=== PATIENT | male | born 1955 | race Caucasian/White ===

== ENCOUNTER 2023-09-16 14:56 | Emergency (ER) | payer BC ==
[2023-09-16] MEDS: Sodium Chloride 0.9% 10 ML Syringe FLUSH PRN (16:19)
[2023-09-16] MEDS: Sodium Chloride 0.9% 1,000 ML IV SCH (16:20)
[2023-09-16 16:23] LABS: BASOPHILS PERCENT AUTO 0.4 % (0.0-1.0); EOSINOPHILS ABSOLUTE AUTO 0.1 K/mm3 (0.0-0.4); EOSINOPHILS PERCENT AUTO 2.8 % (0.0-6.0); HEMOGLOBIN 13.6 gm/dl (14.0-18.0); IMMATURE GRAN ABSOLUTE AUTO 0.01 K/mm3 (0.00-0.05); IMMATURE GRAN PERCENT AUTO 0.2 % (0.0-0.4); LYMPHOCYTES ABSOLUTE AUTO 1.4 K/mm3 (1.0-4.8); LYMPHOCYTES PERCENT AUTO 29.5 % (24.0-44.0); MEAN CORPUSCULAR HEMOGLOBIN 28.3 pg (28.0-32.0); MEAN CORPUSCULAR HGB CONC 32.4 g/dl (32.0-36.0); MEAN CORPUSCULAR VOLUME 87.5 fl (83.0-99.0); MEAN PLATELET VOLUME 9.2 fl (9.4-12.4); MONOCYTES ABSOLUTE AUTO 0.5 K/mm3 (0.0-0.8); NEUTROPHILS ABSOLUTE AUTO 2.7 K/mm3 (1.8-7.7); NEUTROPHILS PERCENT AUTO 57.1 % (41.0-71.0); PLATELET COUNT,PLT 245 K/mm3 (150-400); WHITE BLOOD CELL COUNT,WBC 4.68 K/mm3 (3.9-11.3)
[2023-09-16 16:59] LABS: A/G RATIO 1.1 (1-2); ALANINE AMINOTRANSFERASE,ALT 23 U/L (16-63); ALBUMIN 3.8 g/dl (3.4-5.0); ALKALINE PHOSPHATASE 56 U/L (46-116); ANION GAP 11.3 (5-15); ASPARTATE AMNIOTRANSFERASE,AST 17 U/L (15-37); BILIRUBIN TOTAL 0.2 mg/dL (0.2-1.0); BLOOD UREA NITROGEN,BUN 17 mg/dL (7-18); BUN/CREATININE RATIO 15.5 (14-18); CARBON DIOXIDE,CO2 30 mEq/L (21-32); CHLORIDE,CL 102 mEq/L (98-107); CREATININE 1.1 mg/dL (0.7-1.3); EST CRCL DRUG DOSING (CG) 66.95 mL/min; ESTIMATED GFR 75 mL/min (>60); GLUCOSE RANDOM 100 mg/dL (70-99); MAGNESIUM 2.1 mg/dL (1.8-2.4); POTASSIUM,K 4.3 mEq/L (3.5-5.1); PROTEIN TOTAL,TP 7.4 g/dl (6.4-8.2); SODIUM,NA 139 mEq/L (136-145)
[2023-09-16 17:19] LABS: TROPONIN I HIGH SENSITIVITY < 4 pg/mL (<=76)
== END 2023-09-16 18:01 | disposition home or self-care (01) ==
LOC: JD.ED 14:56
DX: R55 Syncope and collapse (principal)
CPT/HCPCS: 36415; 70450; 71045; 80053; 83735; 84484; 85025; 93005; 96360; 96361; 99284; J3490; J7030; 93010; 99282